=== PATIENT | male | born 1970 | race African-American/Black ===

== ENCOUNTER 2023-01-03 23:53 | Emergency (ER) | payer MEDICAID, SELFPAY ==
--- NOTE | ~2023-01-03 | CT_ITS ---
EXAMINATION: CT brain wo con INDICATION: Altered mental status, history of brain tumor COMPARISON: None TECHNIQUE: Standard unenhanced head CT. The dose-length product (DLP) was 756.67 mGy-cm. The mA was a djusted according to patient size. Iterative reconstruction technique was employed. FINDINGS: There is encephalomalacia in the right temporal, occipital, and parietal lobes, consistent with treatment for patient's reported brain tumor. An underlying right temporal craniotomy defect is noted. No intracranial hemorrhage, acute infarction, or abnormal mass lesion. The ventricles are norm al. No midline shift. The basal cisterns are patent. The orbits are normal. The paranasal sinuses, ma stoids and calvarium are normal. IMPRESSION: 1. Changes of prior tumor resection on the right without acute intracranial abnormality. Reviewed, dictated and finalized at location F. RANGE FEEDER IMPRESSION: 1. Changes of prior tumor resection on the right without acute intracranial abn ormality.
--- NOTE | ~2023-01-03 | XR_ITS ---
EXAMINATION: XR chest 1V portable INDICATION: Altered mental status TECHNIQUE: Portable AP chest at 0252 hours COMPARISON: None available FINDINGS: There are minimal airspace opacities of the left lung base. No pleural effusion or pneumoth orax. The cardiomediastinal silhouette is normal for technique. IMPRESSION: 1. Left basilar airspace opacity, consistent with atelectasis versus pneumonia. Reviewed, dictated and finalized at location F. GEMENT SPECIALIST
[2023-01-03 23:54] VITALS: BP 131/105; PULSE 118; RESP 23; TEMP 36.4; O2SAT 99
[2023-01-03 23:57] VITALS: O2SAT 94
[2023-01-03 23:59] VITALS: BP 144/109; PULSE 118; O2SAT 95
[2023-01-04] VITALS (59 sets, daily range): BP systolic 118–164; BP diastolic 91–116; PULSE 73–116; RESP 14–27; O2SAT 90–100
--- NOTE | 2023-01-04 00:05 | ECG_ITS ---
Measurements Intervals [place] Rate: 118 P: 80 NC: 145 QRS: 30 QRSD: 86 T: 28 QT: 321 QTc: 451 Interpretive Statements SINUS TACHYCARDIA INCOMPLETE RIGHT BUNDLE BRANCH BLOCK BORDERLINE R WAVE PROGRESSION, ANTERIOR LEADS BASELINE ARTIFACT- I, I, AVR, AVL, AVF, V4-V6 ABNORMAL ECG NO PREVIOUS ECG AVAILABLE FOR COMPARISON Electronically Signed On 01-04-2023 8:28:39 [employer] FUS[employer] RO[employer] by Gene Malloy D.O.
--- NOTE | 2023-01-04 00:15 | PC.NURSE ---
Patients arrives at bedside and states patient gets MRIs at [facility] every 6 weeks with his last one in november and was stable and no swelling. Per , Dr. Steve Mcrae is his oncologist at [facility].
[2023-01-04 00:23] LABS: Basophils Percent Auto 0.3 % (0.2-1.2); Eosinophils Percent Auto 0.3 % (0-4.4); Hematocrit 47.6 % (42.0-52.0); Hemoglobin 15.6 g/dL (14.0-18.0); Immature Granulocyte Absolute 0.28 K/mm3 (0.00-0.031); Immature Granulocyte Percent A 2.3 % (0-0.5); Immature Platelet Fraction Pct 11.1 % (0.9-11.2); Lymphocytes Absolute Auto 2.95 K/mm3 (0.9-3.2); Lymphocytes Percent Auto 24.7 % (18.3-44.2); Mean Corpuscular HGB Conc 32.8 g/dl (32-36); Mean Corpuscular Hemoglobin 32.2 pg (26-34); Mean Corpuscular Volume 98.1 fl (80-100); Mean Platelet Volume 11.2 fl (7.4-10.4); Monocytes Absolute Auto 0.8 K/mm3 (0.1-0.6); Monocytes Percent Auto 6.6 % (2.6-8.5); Neutrophils Absolute Auto 7.9 K/mm3 (1.3-6.7); Neutrophils Percent Auto 65.8 % (45.5-73.1); Platelet Count Result 135 k/mm3 (150-375); Red Blood Count 4.85 M/mm3 (4.6-6.20); White Blood Count 11.9 K/mm3 (4.5-10.0)
--- NOTE | 2023-01-04 00:26 | PC.NURSE ---
Patient in CT at this time.
[2023-01-04 00:28] LABS: Prothrombin Time 14.1 Seconds (11.1-14.7)
[2023-01-04 00:29] LABS: Partial Thromboplastin Time 34.1 SECONDS (22.3-36.8)
--- NOTE | 2023-01-04 00:29 | ED.AMS ---
HPI - Altered Mental Status General Chief Complaint: Altered Mental Status <ROBERT Acevedo Last Filed: 01/08/23 09:15> Stated Complaint: ams <ROBERT Acevedo Last Filed: 01/08/23 09:15> Time Seen by Provider: 01/04/23 00:08 <ROBERT Acevedo Last Filed: 01/08/23 09:15> Source: patient and family <ROBERT Acevedo Last Filed: 01/08/23 09:15> Mode of arrival: EMS <ROBERT Acevedo Last Filed: 01/08/23 09:15> Limitations: altered mental status <ROBERT Acevedo Last Filed: 01/08/23 09:15> History of Present Illness HPI narrative: This is a 52 year old male that presents to the ER for increased confusion. His fiance noted he started to seem very confused tonight. He was stumbling and unable to walk so she called EMS for him to be evaluated. He has history of glioblastoma and is followed at [facility]. Fiance reports they were told he has about 3 months to live 5 months ago. He is currently taking Dexamethasone 1mg which they have been tapering down. He was also reporting a headache. Patient otherwise has no complaints. <ROBERT Acevedo Last Filed: 01/08/23 09:15> Related Data Home Medications: Home Medications Medication Instructions Recorded Confirmed dexamethasone 1 mg tablet 1 mg PO DAILY 01/04/23 levetiracetam 500 mg tablet 500 mg PO BID 01/04/23 (Keppra) omeprazole 20 mg capsule,delayed 20 mg PO DAILY 01/04/23 release <ROBERT Acevedo Last Filed: 01/08/23 09:15> Allergies/Adverse Reactions: Allergies Allergy/AdvReac Type Severity Reaction Status Date / Time No Known Allergies Allergy Verified 01/04/23 00:11 <ROBERT Acevedo Last Filed: 01/08/23 09:15> Review of Systems Review of Systems: ROS unobtainable: Yes unobtainable due to mental status <ROBERT Acevedo Last Filed: 01/08/23 09:15> [facility] Past Medical History Medical History: Medical History (Updated 01/05/23 @ 00:00 by Des Caty) Glioblastoma <Hali Gill PA-C - Last Filed: 01/08/23 09:15> Social History Social History: Social History (Updated 01/04/23 @ 00:40 by Hali Gill PA-C) Substance use: never <Hali Gill PA-C - Last Filed: 01/08/23 09:15> Exam Narrative: GENERAL: Well-appearing, well-nourished, and in no acute distress. HEAD: Normocephalic, atraumatic. EYES: PERRLA and EOMI. ENT: Nares clear, no rhinorrhea or epistaxis. Mucous membranes moist. Oropharynx without tonsillar hypertrophy exudate or other lesions. Bilateral TMs pearly yuen non-bulging NECK: Supple. No adenopathy or masses. CHEST: Clear to auscultation. No respiratory distress. No wheezes rales or rhonchi HEART: Regular rate and rhythm. No murmur heard. Normal peripheral pulses. ABDOMEN: Soft, nontender, nondistended, normal active bowel sounds. EXTREMITIES: Normal range of motion. No edema. Strength decreased in the bilateral lower extremities (3/5). Strength equal in bilateral upper extremities (5/5) SKIN: Warm, dry, no rash. NEURO: Alert and oriented x2. Patient had difficulty performing neurologic exam PSYCH: Normal mood and affect <Hali Gill PA-C - Last Filed: 01/08/23 09:15> Course Course Emergency Course: Had in depth discussion with la nena about patient's condition. She would like patient to be transferred for further care at [facility] where his oncologist is <Hali Gill PA-C - Last Filed: 01/08/23 09:15> Had in depth discussion with la nena about patient's condition. She would like patient to be transferred for further care at [facility] where his oncologist is [id number]: Patient was wanting to go home but is still confused. Discussed with patient's POA Nathalia Aviles. She is not was for patient to sign out AMA she would like him to continue to wait for bed at [facility] see can be seen by oncology. At this time patient has received bed in the transfer process and is being initia
[2023-01-04 01:07] LABS: Alanine Aminotransferase 63 U/L (6-50); Albumin Level 4.2 g/dL (3.5-5.1); Alkaline Phosphatase 68 U/L (38-126); Anion Gap 12 mmol/L (8-16); Aspartate Amino Transferase 60 U/L (17-59); Bilirubin,Total 2.3 mg/dL (0.2-1.3); Blood Urea Nitrogen 15 mg/dL (9-20); Calcium 9.4 mg/dL (8.4-10.2); Carbon Dioxide 25 mmol/L (22-30); Chloride 100 mmol/L (98-107); Estimated Glomerular Filt Rate > 60; Glucose 135 mg/dL (65-110); Potassium 3.9 mmol/L (3.4-5.0); Sodium 137 mmol/L (137-145)
[2023-01-04] MEDS: SODIUM CHLORIDE 0.9% IV 1,000 ML 999 ML IV CONT (02:54)
--- NOTE | 2023-01-04 06:14 | PC.NURSE ---
Patient moved to private room awaiting bed at [facility]. Patients is at bedside. Patient has call light within reach.
--- NOTE | 2023-01-04 07:33 | PC.NURSE ---
Patient requesting to go home. This RN informed patient's fiance that we would need the POA to make that decision and be on board with it due to patient not being alert and oriented enough to make those decisions at this time, but I will speak with the provider and have him discuss options with the patient and family. Fiance and patient verbalized understanding.
--- NOTE | 2023-01-04 07:50 | PC.NURSE ---
Patient given water and is aware of needing a urine sample. Patient refusing straight catheter at this time. Family at bedside.
[2023-01-04 08:52] LABS: Appearance Urine Clear (Clear); Bacteria Urine None Seen /hpf; Bilirubin Urine 1+ (Negative); Blood Urine Negative (Negative); Color Urine Dark Yellow (Yellow); Glucose Urine UA Negative (Negative); Ketones Urine Trace mg/dL (Negative); Leukocyte Esterase Ur Trace LEU/UL (Negative); Nitrate Urine Negative (Negative); Protein Urine 1+ mg/dL (Negative); Specific Grav Ur 1.027 (1.001-1.035); Squamous Epithelial Cell Urine None seen /hpf (Few); WBC Urine 0-5 /hpf
[2023-01-04 09:01] LABS: Add Urine Microscopic? YES
--- NOTE | 2023-01-04 17:57 | PC.NURSE ---
Spoke with [facility] [place] for report. Patient la nena called and updated. EMS ETA is [id number].
== END 2023-01-04 20:54 | disposition short-term general hospital (02) ==
PROVIDERS: Emergency Provider Physician Assistant
DX: R41.82 Altered mental status, unspecified (principal); C71.9 Malignant neoplasm of brain, unspecified; R00.0 Tachycardia, unspecified; I45.10 Unspecified right bundle-branch block; R94.31 Abnormal electrocardiogram [ECG] [EKG]; R91.8 Other nonspecific abnormal finding of lung field
CPT/HCPCS: 36415; 70450; 71045; 80053; 81001; 85025; 85055; 85610; 85730; 93005; 96361; 96374; 96376; 99285; J1100; J7030